=== PATIENT | male | born 1955 | race Caucasian/White ===

== ENCOUNTER → 2017-11-23 | Emergency (ER) | payer MEDICARE ==
[~2017-11-23] MED LIST: ALBUTEROL 8 GM INHALER INH ONE; SALMETEROL/FLUTIC 250/50 1 INH INH ONE
--- NOTE | 2017-11-23 18:53 | ER Report ---
History and Physical Time Seen By MD: 18:53 HPI/ROS CHIEF COMPLAINT: Prescription refill HISTORY OF PRESENT ILLNESS: 62-year-old male patient presents to emergency room with complaint of needing a prescription refill. Patient states that he is in the process of moving from [place] to [place]. He states that when he left home he forgot his medications in a toiletry bag. He states he's been without his meds for the last 3 days. He states he is noticed some difficulty breathing [place] Patient states she's noticed that significant worse at this point time. Patient states he is typically on Advair and albuterol for his COPD. He denies having any fevers, chills, nausea, vomiting or diarrhea. Allergies: Coded Allergies: No Known Drug Allergies (Unverified , 11/23/17) Past Medical/Surgical History Patient has a past medical history of hypertension, asthma, tibial plateau fracture. Reviewed Nurses Notes: Yes Constitutional Vital Sign - Last 24 Hours 11/23/17 18:57 Temp 98.2 Pulse 89 Resp 16 B/P (MAP) 195/117 Pulse Ox 90 O2 Delivery Room Air Physical Exam General appearance: Alert no distress. Respiratory: Chest is non tender, lungs are clear to auscultation. Cardiac: Regular rate and rhythm DIFFERENTIAL DIAGNOSIS: After history and physical exam differential diagnosis was considered for COPD, prescription refill. Medical Decision Making ED Course/Re-evaluation ED Course Patient was admitted to examine, history of physical or pain. Differential diagnoses were considered. On examination lungs are clear, heart is regular, abdomen soft nontender. We will go ahead and refill the patient's prescription for albuterol and Advair. We will have him follow-up with a primary care provider when he gets to [place]. He is to make sure he is playing of rest , increase fluid intake. I anticipate he feels significantly better when he gets to a lower altitude. I did encourage him to go ahead and continue on [place] which is working lower than his we are here in [place]. Patient verbalized understanding and agreement with plan. Decision to Disposition Date: Nov 23, 2017 Decision to Disposition Time: 19:05 Depart Departure Latest Vital Signs Vital Signs Date Time Temp Pulse Resp B/P (MAP) Pulse Ox O2 Delivery O2 Flow Rate FiO2 11/23/17 18:57 98.2 89 16 195/117 90 Room Air Impression: Primary Impression: COPD (chronic obstructive pulmonary disease) Condition: Improved Disposition: HOME OR SELF-CARE Patient Instructions: COPD (Chronic Obstructive Pulmonary Disease) (ED) Additional Instructions: Follow up with a primary care provider when you get to [place]. Increase fluid intake. Get plenty of rest. I would encourage you to continue driving east and get to a lower altitude. Problem Qualifiers Primary Impression: COPD (chronic obstructive pulmonary disease) COPD type: unspecified COPD Qualified Codes: J44.9 - Chronic obstructive pulmonary disease, unspecified DENZEL LUNA Nov 23, 2017 18:53
[2017-11-23 18:57] VITALS: BP 195/117
== END ==
LOC: ER 19:03
DX: Z76.0 Encounter for issue of repeat prescription (principal); J44.9 Chronic obstructive pulmonary disease, unspecified
CPT/HCPCS: 99281; J3535